=== PATIENT | male | born 1945 | race Caucasian/White ===

== ENCOUNTER 2017-01-23 08:52 | Day surgery (SDC) | payer MEDICARE, OTHER ==
--- NOTE | ~2017-01-23 | EGD ---
EGD REPORT [facility] [address] [address] NAME: Tyrese WHITING : [birth year] STATUS : [facility] PAT#: [id number] AGE: 72 ADM/REG DATE : 01/23/17 MR#: [id number] REPORT SERV DATE: 01/23/17 DICTATED BY: CHIARA BOONE DATE: 01/23/17 REPORT STATUS : Draft TRANSCRIBED BY: [facility] DATE: 01/23/17 Endoscopy Center Patient Name: Tyrsee Whiting. Date of : 1945 Attending MD: CHIARA BOONE MD Procedure Date No Time: 01/23/2017 Procedure: Upper GI endoscopy Indications: Iron deficiency anemia secondary to chronic blood loss; Prilosec 20mg daily. Patient Profile: Informed consent was obtained from the patient by me prior to the procedure. Risks, benefits, and alternatives were discussed including the risk of bleeding, perforation, infection, reaction to medicine, missed lesion, and cardiopulmonary complications. Referring MD: BETTIE HOLLIS Medicines: Monitored Anesthesia Care Complications: No immediate complications. Procedure: Pre-Anesthesia Assessment: - ASA Grade Assessment: III - A patient with severe systemic disease. After obtaining informed consent, the endoscope was passed under direct vision. Throughout the procedure, the patient's blood pressure, pulse, and oxygen saturations were monitored continuously. The GIF H190 [id number] was introduced through the mouth, and advanced to the second part of duodenum. The endoscope was withdrawn with careful examination all mucosal surfaces including retroflexion stomach. The upper GI endoscopy was accomplished without difficulty. The patient tolerated the procedure well. Findings: The examined duodenum was normal. Mild portal hypertensive gastropathy was found in the cardia, in the gastric fundus and in the gastric body. Grade I varices were found in the lower third of the esophagus, no stigmata. The esophagus and gastroesophageal junction were examined with white light. There was no visual evidence of Mays's esophagus. Two 5 mm sessile polyps were found in the cardia and in the gastric body, benign-appearing; previous bx benign. A single localized small erosion was found in the gastric antrum. Impression: - Normal examined duodenum. - Portal hypertensive gastropathy. EGD REPORT [address] [address] NAME: Tyrese WHITING : [birth year] STATUS : [facility] PAT#: [id number] AGE: 72 ADM/REG DATE : 01/23/17 MR#: [id number] REPORT SERV DATE: 01/23/17 DICTATED BY: CHIARA BOONE DATE: 01/23/17 REPORT STATUS : Draft TRANSCRIBED BY: [facility] DATE: 01/23/17 - Grade I esophageal varices. - There is no endoscopic evidence of Mays's esophagus. - Two gastric polyps. - Erosive gastropathy. Recommendation: - Patient has a contact number available for emergencies. The signs and symptoms of potential delayed complications were discussed with the patient. Return to normal activities tomorrow. Written discharge instructions were provided to the patient. - Regular diet. - Continue present medications. - Increase Prilosec to 20mg bid. - Start Propranolol 10mg bid. - Schd colonoscopy Mem AA re: [place]. Procedure Code(s): --- Professional --- 03198, Esophagogastroduodenoscopy, flexible, transoral; diagnostic, including collection of specimen(s) by brushing or washing, when performed (separate procedure) Diagnosis Code(s): --- Professional --- K76.6, Portal hypertension K31.89, Other diseases of stomach and duodenum I85.00, Esophageal varices without bleeding K31.7, Polyp of stomach and duodenum D50.0, Iron deficiency anemia secondary to blood loss (chronic) CPT copyright 2013 [employer]. All rights reserved. The codes documented in this report are preliminary and upon neurology technologist review may be revised to meet current compliance requirements. CHIARA BOONE MD 01/23/2017 10:55 AM This report has been signed electronically. Number of Addenda: 0 Note Initiated On: 01/23/2017 10:27 AM Scope Withdrawal Time 0 hours 0 minutes 0 seconds [id number] [id number]
[~2017-01-23 08:52] MED LIST: ASAB PO; CRESTOR10 PO; FLOMAX4 PO; GLUCPH PO; GLUCXL2.5 PO; HYZAAR1 TAB PO; LEVOTHYROXIN25 MCG PO; MULTI-VIT/F1 PO; NORV5 PO; ZYRTEC ALLGY10 MG PO
== END 2017-01-23 23:59 | disposition home or self-care (01) ==
LOC: DMU 08:52
PROVIDERS: Internal Medicine Gastroenterology
PROC: 0DJ08ZZ Inspection of Upper Intestinal Tract, Via Natural or Artificial Opening Endoscopic (ICD-10-PCS; principal; 2017-01-23 10:15)
DX: K76.6 Portal hypertension (principal); K31.89 Other diseases of stomach and duodenum; I85.00 Esophageal varices without bleeding; K31.7 Polyp of stomach and duodenum; D50.0 Iron deficiency anemia secondary to blood loss (chronic); E11.9 Type 2 diabetes mellitus without complications; I10 Essential (primary) hypertension; E03.9 Hypothyroidism, unspecified; E78.5 Hyperlipidemia, unspecified; H91.90 Unspecified hearing loss, unspecified ear; G47.33 Obstructive sleep apnea (adult) (pediatric); Z88.8 Allergy status to other drugs, medicaments and biological substances; Z98.42 Cataract extraction status, left eye; Z96.1 Presence of intraocular lens; Z97.4 Presence of external hearing-aid; E78.00 Pure hypercholesterolemia, unspecified; M19.90 Unspecified osteoarthritis, unspecified site; K64.9 Unspecified hemorrhoids; Z98.890 Other specified postprocedural states; Z85.46 Personal history of malignant neoplasm of prostate; Z85.72 Personal history of non-Hodgkin lymphomas
CPT/HCPCS: 82962

== ENCOUNTER 2017-02-11 06:08 | Day surgery (SDC) | payer MEDICARE, OTHER ==
--- NOTE | ~2017-02-11 | EGD ---
EGD REPORT [facility] [address] [address] NAME: Tyrese WHITING : [birth year] [place] : [facility] [place] PAT#: [id number] AGE: 72 ADM/REG DATE : 02/11/17 MR#: [id number] REPORT SERV DATE: 02/11/17 DICTATED BY: CHIARA BOONE DATE: 02/11/17 REPORT STATUS : Draft [facility]ANSCRIBED BY: [facility] DATE: 02/11/17 Endoscopy Center Patient Name: Tyrese Whiting. Date of : 1945 Attending MD: CHIARA BOONE MD Procedure Date No Time: 02/11/2017 Procedure: Colonoscopy Indications: Iron deficiency anemia; h/o colon adenomas last exam 2013. Patient Profile: Informed consent was obtained from the patient by me prior to the procedure. Risks, benefits, and alternatives were discussed including the risk of bleeding, perforation, infection, reaction to medicine, missed lesion, and cardiopulmonary complications. Referring MD: BETTIE HOLLIS Medicines: Monitored Anesthesia Care Complications: No immediate complications. Procedure: Pre-Anesthesia Assessment: - ASA Grade Assessment: III - A patient with severe systemic disease. After I obtained informed consent, the scope was passed under direct vision. Throughout the procedure, the patient's blood pressure, pulse, and oxygen saturations were monitored continuously. The PCF [id number] was introduced through the anus and advanced to the cecum, identified by appendiceal orifice and ileocecal valve. The colonoscope was slowly withdrawn with careful examination all mucosal surfaces including specific attention around flexures and tip deflection behind folds; retroflexion performed in rectum. The colonoscopy was performed without difficulty. The patient tolerated the procedure well. The quality of the bowel preparation was adequate. The ileocecal valve, appendiceal orifice and rectum were photographed. Findings: A sessile polyp was found in the descending colon. The polyp was 5 mm in size. The polyp was removed with a cold biopsy forceps. Resection and retrieval were complete. A sessile polyp was found at the hepatic flexure. The polyp was 10 mm in size. The polyp was removed with a cold snare. Resection and retrieval were complete. A sessile polyp was found in the proximal transverse colon. The polyp was 12 mm in size. The polyp was removed with a hot snare. Resection and retrieval were complete, only one small piece retrieved. EGD REPORT [address] [place]. [address] NAME: Tyrese WHITING : [birth year] STATUS : [facility]#: [id number] AGE: 72 ADM/REG DATE : 02/11/17 MR#: [id number] REPORT SERV DATE: 02/11/17 DICTATED BY: CHIARA BOONE DATE: 02/11/17 REPORT STATUS : Draft TRANSCRIBED BY: [employer] DATE: 02/11/17 Impression: - One 5 mm polyp in the descending colon. Resected and retrieved. - One 10 mm polyp at the hepatic flexure. Resected and retrieved. - One 12 mm polyp in the proximal transverse colon. Resected and retrieved. Recommendation: - Patient has a contact number available for emergencies. The signs and symptoms of potential delayed complications were discussed with the patient. Return to normal activities tomorrow. Written discharge instructions were provided to the patient. - Regular diet. - Continue present medications. - Await pathology results. - Repeat colonoscopy for surveillance based on pathology results. Procedure Code(s): --- Professional --- 80056, Colonoscopy, flexible, proximal to splenic flexure; with removal of tumor(s), polyp(s), or other lesion(s) by snare technique 20039, 59, Colonoscopy, flexible, proximal to splenic flexure; with biopsy, single or multiple Diagnosis Code(s): --- Professional --- D12.3, Benign neoplasm of transverse colon D12.4, Benign neoplasm of descending colon D50.9, Iron deficiency anemia, unspecified CPT copyright 2013 [employer]. All rights reserved. The codes documented in this report are preliminary and upon profile saw operator review may be revised to meet current compliance requirements. CHIARA BOONE MD 02/11/2017 8:32 AM This report has been signed electronically. Number of Addenda: 0 Note Initiated On: 02/11/2017 7:51 AM Scope Withdrawal Time 0 hours 12 minutes 30 seconds [id number] [id number]
== END 2017-02-11 23:59 | disposition home or self-care (01) ==
LOC: DMU 06:08
PROVIDERS: Internal Medicine Gastroenterology
PROC: 0DBM8ZZ Excision of Descending Colon, Via Natural or Artificial Opening Endoscopic (ICD-10-PCS; principal; 2017-02-11 07:30)
PROC: 0DBL8ZZ Excision of Transverse Colon, Via Natural or Artificial Opening Endoscopic (ICD-10-PCS; 2017-02-11 07:30)
DX: D12.4 Benign neoplasm of descending colon (principal); D12.3 Benign neoplasm of transverse colon; K76.0 Fatty (change of) liver, not elsewhere classified; K64.9 Unspecified hemorrhoids; I10 Essential (primary) hypertension; E03.9 Hypothyroidism, unspecified; E78.00 Pure hypercholesterolemia, unspecified; E11.9 Type 2 diabetes mellitus without complications; G47.30 Sleep apnea, unspecified; H91.93 Unspecified hearing loss, bilateral; M19.90 Unspecified osteoarthritis, unspecified site; Z86.010 Personal history of colon polyps; Z85.46 Personal history of malignant neoplasm of prostate; Z88.1 Allergy status to other antibiotic agents; Z97.4 Presence of external hearing-aid; Z96.1 Presence of intraocular lens; Z98.41 Cataract extraction status, right eye; Z92.3 Personal history of irradiation; Z92.21 Personal history of antineoplastic chemotherapy; Z98.890 Other specified postprocedural states; Z79.82 Long term (current) use of aspirin; Z79.84 Long term (current) use of oral hypoglycemic drugs; Z79.899 Other long term (current) drug therapy
CPT/HCPCS: 82962; 88305